=== PATIENT | female | born 1955 | race Caucasian/White ===

== ENCOUNTER 2018-05-02 16:08 | Emergency (ER) | payer MEDICARE ==
[~2018-05-02] VITALS: Ht 170.2 cm; Wt 127.0 kg
[2018-05-02 16:08] VITALS: Ht 170.2 cm; Wt 127.0 kg
== END 2018-05-02 22:40 | disposition expired ==
LOC: ED 16:08
DX: I46.9 Cardiac arrest, cause unspecified (principal); I10 Essential (primary) hypertension; E11.9 Type 2 diabetes mellitus without complications
CPT/HCPCS: J0171; J3490